=== PATIENT | female | born 2005 | race Caucasian/White ===

== ENCOUNTER 2024-05-24 11:52 | Emergency (ER) | payer BC, SELFPAY ==
[2024-05-24 11:57] VITALS: BP 118/63; PULSE 82; RESP 16; TEMP 36.2; O2SAT 100; BMI 21.3
[2024-05-24] MEDS: LIDOCAINE/EPINEP/TETRACAINE 3 ML GEL..ML. TOPICAL (14:30)
--- NOTE | 2024-05-24 14:30 | ED.NURSE ---
Anxiety fidget ring gold plated titanium steel 3 stacking bands and one base spinner ring cut off Pt finger using ER ring cutters. Pt did present with injury to top layer of skin. Pt wound was cleansed under running water using washcloth and hibiclens and covered with bacitracin and bandaid.
--- NOTE | 2024-05-24 14:38 | ED_ITS ---
HPI - General Adult General Chief complaint: Skin/Abscess/Foreign Body Stated complaint: Ring stuck on right pointer finger Time Seen by Provider: 05/24/24 11:53 History of Present Illness HPI narrative: This 18-year-old female comes from urgent care where an attempt was made to remove a ring that was stuck on her finger. She but this new ring in place that on her finger last night. This morning her finger was swollen and painful. An attempt was made at urgent care to remove the ring by using string and a ring cutter. These attempts were unsuccessful as the ring is rather thick and has a little base later of metal that has 3 separate rings overlying the base layer of ring. The patient did receive a digital block at urgent care which has not provided much pain relief but may be causing more swelling in the area. Related Data Home Medications ?Medication ?Instructions ?Recorded ?Confirmed adapalene 0.3 % topical gel topical 05/24/24 05/24/24 dexmethylphenidate 20 mg mg PO 05/24/24 05/24/24 capsule,extended release [id number] drospiren-e.estrad-l.mefol 3 1 tab PO QDAY 05/24/24 05/24/24 mg-0.02 mg-0.451 mg(24)/0.451 mg(4)tablet mirtazapine 15 mg tablet mg 05/24/24 sertraline 100 mg tablet mg 05/24/24 Allergies Allergy/AdvReac Type Severity Reaction Status Date / Time No Known Drug Allergies Allergy Verified 05/24/24 12:02 Review of Systems Status of ROS: Reports: 10 or more systems reviewed and unremarkable except as noted in History and below Narrative: Constitutional: No fevers, no weight gain or loss. Eyes: No discharge. No vision changes. HENT: No congestion, no sore throat, no ear pain. Cardiovascular: No chest pain, no palpitations. Respiratory: No shortness of breath, no wheezes, no cough. Gastrointestinal: No abdominal pain, no vomiting, no diarrhea. Genitourinary: No dysuria, no hematuria. Musculoskeletal: Normal range of motion. Skin: No rashes, no pruritis. Neurological: No dizziness, weakness, sensory change, speech change. Endo/Heme/Allergies: No bruising or bleeding. No polydipsia. Pysch: no suicidality, no anxiety, no insomnia. All other systems reviewed and are negative. Exam Narrative: Exam Narrative: Constitutional: Well-developed, well-nourished, no acute distress. HEENT: Normocephalic, atraumatic. Neck: Normal range of motion. Nontender. Supple. Heart: Intact distal pulses. Lungs: No chest discomfort. No wheezes, rhonchi, or rales. Abdomen: Nontender. Back: Normal range of motion. Extremities: Normal range of motion. Right index finger has a ring that is unable to be removed with associated swelling and cyanosis of the distal portion of the finger. Skin: Intact. No rash. Warm. No erythema or pallor. Neurologic: No altered sensation. No weakness. Alert and oriented. Psychiatric: No suicidality. No anxiety or depression. No insomnia. Nursing notes and vitals signs are reviewed. Const: Vital Signs, click to edit/add: Vital Signs - 24 hr 05/24/24 11:57 Temperature 97.2 F L Pulse Rate [Left P ulse Oximeter] 82 Respiratory Rate 16 Blood Pressure [Le ft Upper Arm] 118/63 Pulse Oximetry 100 Oxygen Delivery Me thod Room Air Course Vital Signs Vital signs: Initial Vital Signs Temperature 97.2 F L 05/24/24 11:57 Temperature Source Temporal Artery Scan 05/24/24 11:57 Pulse Rate 82 05/24/24 11:57 Respiratory Rate 16 05/24/24 11:57 Blood Pressure 118/63 05/24/24 11:57 Blood Pressure Mean 81 05/24/24 11:57 Blood Pressure Position Sitting 05/24/24 11:57 Pulse Oximetry 100 05/24/24 11:57 Oxygen Delivery Method Room Air 05/24/24 11:57 Vital Signs Temperature 97.2 F L 05/24/24 11:57 Pulse Rate 82 05/24/24 11:57 Respiratory Rate 16 05/24/24 11:57 Blood Pressure 118/63 05/24/24 11:57 Pulse Oximetry 100 05/24/24 11:57 Oxygen Delivery Method Room Air 05/24/24 11:57 Temperature 97.2 F L 05/24/24 11:57 Pulse Rate 82 05/24/24 11:57 Respiratory Rate 16 05/24/24 11:57 Blood Pressure 118/63 05/24/24 11:57 Pulse Oximetry 100 05/24/24 11:57 Oxygen Delivery Method Room Air 05/24/24 11:57 Medical Decision Making MDM Narrative Medical decision making narrative: The patient is rather guarded because of an abrasion on her finger from previous attempts that is quite sensitive. I was able to use a ring cutter to remove the 3 outer bands but the in her band was very difficult to make progress and it was also difficult to place the ring cutter under the ring due to swelling. The patient had some ice applied to her finger along with let transdermal for anesthesia. The then used a ring cutter and also a Dremel tool was used to cut into the ring. I used needle drivers and pliers to eventually separate the ring and remove it from her finger. She has a superficial abrasion on her index finger that does not need repair. Discharge Plan Discharge Clinical Impression: Tight ring on finger Patient Disposition: Home, Self-Care Condition: Improved Additional Instructions: Use [id number] medicines as needed and directed. Follow up with MD or return if worsening. Prescriptions: No Action adapalene 0.3 % gel topical Patient Comments: [NO ORIGINAL SIG] drospirenone-e.estradiol-lm.FA 3-0.02-0.451 mg (24) (4) tablet 1 tab PO QDAY dexmethylphenidate 20 mg capsule,ER biphasic 50-50 PO Patient Comments: [NO ORIGINAL SIG] sertraline 100 mg tablet Patient Comments: TAKE 1 AND 1/2 TABLETS BY MOUTH ONCE DAILY mirtazapine 15 mg tablet Patient Comments: TAKE 1 TABLET BY MOUTH AT BEDTIME Follow Up/Referrals: Provider,Not a Local [Primary Care Provider] - Stand Alone Forms: [employer] Info Instructions
== END 2024-05-24 15:01 | disposition home or self-care (01) ==
PROVIDERS: Emergency Provider Emergency Medicine Emergency Medical Services
DX: S60.440A External constriction of right index finger, initial encounter (principal); W49.04XA Ring or other jewelry causing external constriction, initial encounter
CPT/HCPCS: 99282; 99283; 99284